=== PATIENT | male | born 1955 | race Caucasian/White ===

== ENCOUNTER 2020-09-12 08:48 | Outpatient (CLI) | payer OTHER, MEDICARE | END 2020-09-12 08:49 | disposition home or self-care (01) | LOC: BICMRI 08:48 | PROVIDERS: ATTEND Psychiatry & Neurology Neurology | DX: M50.20 Other cervical disc displacement, unspecified cervical region (principal); M47.812 Spondylosis without myelopathy or radiculopathy, cervical region; M47.813 Spondylosis without myelopathy or radiculopathy, cervicothoracic region; M48.02 Spinal stenosis, cervical region | CPT/HCPCS: 72141 ==

== ENCOUNTER 2022-09-17 07:00 | Outpatient (CLI) | payer MEDICARE, OTHER | END 2022-09-17 07:01 | disposition home or self-care (01) | LOC: BICULT 07:00 | PROVIDERS: ATTEND Internal Medicine Gastroenterology | DX: R10.13 Epigastric pain (principal); K76.0 Fatty (change of) liver, not elsewhere classified; N28.1 Cyst of kidney, acquired | CPT/HCPCS: 76700 ==